=== PATIENT | male | born 1930 | race African-American/Black ===

== ENCOUNTER 2017-11-13 11:58 | Emergency (ER) | payer MEDICARE, OTHER ==
[~2017-11-13] VITALS: Ht 177.8 cm; Wt 90.7 kg
[2017-11-13] MEDS ORDERED: UNOBMED (12:41)
[2017-11-13] MEDS ORDERED: Calcium Chloride 10% 10ml carpuject IVP ONE (13:11)
[2017-11-13] MEDS ORDERED: Amiodarone 150mg/ml 3ml Amp ONE (13:11)
[2017-11-13] MEDS ORDERED: Sodium Bicarbonate 8.4% 50ml Inj ONE (13:11)
--- NOTE | 2017-11-13 16:14 | Emergency Room Report ---
History of Present Illness General Chief Complaint: Dyspnea/Respdistress Source: EMS Present Illness Allergies: Coded Allergies: No Known Allergies (Unverified , 11/13/17) Nursing Documentation-PMH Hx Hypertension: Yes Hx COPD: Yes History Of Psychiatric Problem: Yes - Dementia Physical Exam Vital Signs Date Time Temp Pulse Resp B/P (MAP) Pulse Ox O2 Delivery O2 Flow Rate FiO2 11/13/17 11:58 0 0 0/0 0 Non-Rebreather 8.0 Medical Decision Making Diagnostic Impression: Primary Impression: Cardiopulmonary arrest Last Vital Signs Date Time Temp Pulse Resp B/P (MAP) Pulse Ox O2 Delivery O2 Flow Rate FiO2 11/13/17 11:58 0 0 0/0 0 Non-Rebreather 8.0 Referrals: [facility] (PCP) CRISTINE MOE D.O. Nov 13, 2017 16:14
[2017-11-13 17:25] VITALS: BP 0/0
== END 2017-11-13 17:40 | disposition expired ==
LOC: EDBD 11:58 → EMR 13:10
DX: I46.9 Cardiac arrest, cause unspecified (principal); J44.9 Chronic obstructive pulmonary disease, unspecified; F03.90 Unspecified dementia, unspecified severity, without behavioral disturbance, psychotic disturbance, mood disturbance, and anxiety
CPT/HCPCS: 31500; 92950; 99291; J0171; J0282; J3490